=== PATIENT | female | born 1970 | race Caucasian/White ===

== ENCOUNTER 2020-10-07 16:46 | Outpatient (CLI) | payer OTHER, SELFPAY ==
--- NOTE | ~2020-10-07 | US_ITS ---
EXAMINATION: US venous doppler LE RT DATE: 10/07/2020 17:12 INDICATION: Right lower limb pain. TECHNIQUE: Grayscale ultrasound images without and with compression and Doppler ultrasound images of the right lower extremity veins were obtained. COMPARISON: None. FINDINGS: The visualized portions of right common femoral vein, profunda (deep) femoral vein, femoral vein, pop liteal vein, peroneal veins, posterior tibial veins, and greater saphenous vein outflow are patent. IMPRESSION: 1. No deep venous thrombosis. Reviewed, dictated and finalized at location A. 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
== END 2020-10-07 16:47 | disposition home or self-care (01) ==
PROVIDERS: PCP Family Medicine; Visit Provider Physician Assistant Medical
DX: M79.604 Pain in right leg (principal); M79.89 Other specified soft tissue disorders
CPT/HCPCS: 93971

== ENCOUNTER → 2022-05-03 15:49 | Outpatient (CLI) | payer OTHER, SELFPAY ==
--- NOTE | ~2022-05-03 | XR_ITS ---
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 AP and lateral views of right hip. COMPARISON: None FINDINGS: No pelvic fracture or bone destruction. Normal alignment at the pubic symphysis and sacroil iac joints. No fracture or dislocation, avascular necrosis or bone destruction of the right hip. Hip joint spaces appear symmetric and relatively preserved. Prominent amount fecal material in the rectum and colon. IMPRESSION: No significant abnormality of the pelvis or right hip Reviewed, dictated and finalized at location B.
== END ==
PROVIDERS: PCP Family Medicine; Visit Provider Family Medicine
DX: R10.9 Unspecified abdominal pain (principal)
CPT/HCPCS: 73502

== ENCOUNTER → 2022-08-29 13:36 | Outpatient (CLI) | payer OTHER, SELFPAY ==
--- NOTE | ~2022-08-29 | US_ITS ---
Duplex Sonography of the left extremity: Indication: Pain Findings: Sagittal and transverse B-mode images as well as color-flow imaging were performed on the l eft femoral and popliteal veins. B-mode examination was done without and with compression in the tra nsverse plane. There is good visualization of the common femoral, proximal profunda femoral, superfi cial femoral, greater saphenous, and popliteal veins. Normal flow was seen on color-flow imaging. No rmal compressibility was demonstrated. Posterior tibial and peroneal veins in the left lower extremit y also patent. Impression: No evidence of deep vein thrombosis involving the left lower extremity. Reviewed, dictated and finalized at location M. 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
== END ==
PROVIDERS: PCP Nurse Practitioner; Visit Provider Nurse Practitioner
DX: M79.89 Other specified soft tissue disorders (principal); M79.669 Pain in unspecified lower leg
CPT/HCPCS: 93971

== ENCOUNTER 2024-12-31 16:34 | Outpatient (CLI) | payer OTHER, SELFPAY ==
--- NOTE | ~2024-12-31 | XR_ITS ---
Right foot Technique: AP, oblique, and lateral views were obtained. Clinical History: Pain Findings: There is acute intra-articular, displaced fracture at the medial aspect of the base of the third proximal phalanx.. Joint spaces are preserved without erosive or degenerative change. Plantar c alcaneal spur present. Soft tissues are unremarkable. Impression: Acute intra-articular, displaced fracture at the medial aspect of the base of the third proximal phal anx. Plantar calcaneal spur. Reviewed, dictated and finalized at location M. Impression: Acute intra-articular, displaced fracture at the medial aspect of the base of t he third proximal phalanx. Plantar calcaneal spur.
--- NOTE | ~2024-12-31 | XR_ITS ---
XR ankle RT min 3V Ordering provider: Yvrose Atkins, [employer] History: . Right ankle and foot pain . Comparison: None. FINDINGS: BONES: No acute fracture or dislocation. JOINT SPACES: Normal. SOFT TISSUES: Normal. Calcaneus spur. Fixation of the insertion of the tendo Achilles. Os calcis is noted. IMPRESSION: No acute osseous abnormality of the right ankle. Reviewed, dictated and finalized at location A.
--- OUTSIDE RECORDS SUMMARY | 2024-12-31 16:57 | XMS_ITS | Patient Health Record ---
Author Organization [facility] Address [address] [place] [address] Support Name Relationship Address Phone Lisa Skinner Guarantor Unknown Reason For Referral No Information Medications Medication SIG (Take, Route, Frequency, Duration) Notes Start Date End Date Status Cymbalta 60 MG take 1 capsule (60 m g) by oral route once daily Oral 1 Active ZyrTEC Allergy 10 MG take 1 capsule by o ral route daily Oral 1 for 30 Active Accu-Chek Carmen Plus use as directed for 90 days In Vitro for 90 Active Multi-Vitamin take 1 tablet by ora l route once daily with food for 90 days Oral 1 for 90 Active Singulair 10 MG take 1 tablet (10 mg ) by oral route once daily in the evening Oral 1 for 90 Active traZODone HCl 50 MG QD Oral Active Calcium Carbonate 1250 (500 Ca) MG take 1 tablet by oral route daily for 90 days Oral 1 for 90 Active Biotin 10 mg take 1 tablet by ora l route daily for 90 days Oral 1 for 90 Active B-12 100 mcg pt does not know mg Oral for 30 Active Flonase Sensimist 27.5 MCG/SPRAY USE NEEDED Nasal for 90 A ctive Immunizations Vaccine Route Administration Date Status Comme nts Infuenza, trivalent, recombinant, preservative free Unknown 05/27/2009 Administered migrated LegPa tid= [id number] Date=05/27/2009 Vac= Influenza Problems Problem Type SNOMED Code ICD Code Onset Dates Problem Status W/U Status Risk Notes Problem Infectious mononucleosis (962122961) Infectious mononucleosis (075) 01/16/20 05 Active confirmed Problem Anemia (250153277) Anemia, unspecified (D64.9) 06/08/20 10 Active confirmed Problem Hypothyroidism (08019839) Hypothyroidism, unspecified (E03.9) 01/20/20 05 Active confirmed Problem Autoimmune thyroiditis (78341247) Autoimmune thyroiditis (E06.3) 01/16/20 05 Active confirmed Problem Thyroiditis (54343818) Thyroiditis, unspecified (E06.9) Active confirmed Problem Obesity (350777338) Obesity, unspecified (E66.9) 07/03/20 05 Active confirmed Problem Major depression, single episode (89828485) Major depressive disorder, single episode, unspecified (F32.9) Active confirmed Problem Chronic pharyngitis (654562) Chronic pharyngitis (J31.2) 01/16/20 05 Active confirmed Problem Uncomplicated asthma (disorder) (161719811) Unspecified asthma, uncomplicated (J45.909) 01/16/20 05 Active confirmed Problem Acanthosis nigricans (977107122) Acanthosis nigricans (L83) Active confirmed Problem Oligomenorrhea (87962892) Oligomenorrhea, unspecified (N91.5) 01/16/20 05 Active confirmed Problem Type II diabetes mellitus without complication (722626171) Type 2 diabetes mellitus without complications (E11.9) 02/11/20 07 Active confirmed Problem Hyperlipidemia (09150858) Hyperlipidemia, unspecified (E78.5) 01/16/20 05 Active confirmed Problem Essential hypertension (51373865) Essential (primary) hypertension (I10) 01/16/20 05 Active confirmed Plan Of Treatment No Information Insurance Providers Payer Name Payer Address Payer Phone Subscriber Number Group Number Insured Name Patient Relationship to Insured Coverage Start Date Coverage End Date [facility] Choice Plus [address] [address] [place] [address] [id number] Lisa Skinner Self - patient is the insured 4 DO NOT USE [id number] Lisa Skinner Self - patient is the insured 1
--- OUTSIDE RECORDS SUMMARY | 2024-12-31 16:57 | XMS_ITS | Encounter Summary ---
Author Organization [facility] Address 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
--- OUTSIDE RECORDS SUMMARY | 2024-12-31 16:57 | XMS_ITS | Clinical Summary ---
Author Organization [facility] Address [address] [place] [address] Care Team Providers Care Education Intern Name Role Phone Breanna Cosby MD Primary Care Provider [phone] Source Comments [facility],non-owned Affiliates and Associated Physician Practices is amultiple site organization consisting of ambulatory clinics and hospital sitesin [place], [place] and [place]. This disclosure is being madepursuant to the Care Everywhere program and may not contain all information available regarding this patient. Last updated 18.[facility] Allergies Active Allergy Reactions Criticality Noted Date Comments Penicillins 01/24/2010 Hives Sulfa Drugs Urticaria Medium 03/01/2017 Medications * Be aware that medications may not be up to date on this document. Alwaysverify current medications with the patient. fluticasone propionate (FLONASE) 50 MCG/ACT nasal spray [place] 2 (two) sprays into each nostril once daily Active levothyroxine (SYNTHROID) 150 MCG tablet Take 1 (one) tablet by mouth daily before breakfast Take am of OR Active vitamin B-12 (CYANOCOBALAMIN ) 100 MCG tablet Take 1 Tab by mouth daily. 30 1 0 Active DULoxetine (CYMBALTA) 60 MG capsule Take 40 mg by mouth 2 times daily Active traZODone (DESYREL) 50 MG tablet Take 2 (two) tablets by mouth at bedtime Active Rosuvastatin Calcium (CRESTOR PO) Active Cetirizine HCl (ZYRTEC ALLERGY PO) Active Ferrous Sulfate (IRON) 325 (65 FE) MG Active vitamin D3 (CHOLECALCIFERO L) 25 MCG (1000 UNITS) tablet Take by mouth once daily Active Ozempic, 2 MG/DOSE, 8 MG/3ML pen 3 Active Tresiba FlexTouch 100 UNIT/ML pen 3 Active Insulin Lispro-aabc (Bonnie Louis) 200 UNIT/ML SOPN 18 units TID and 5 units with snack + SSI --> max dose 80 units/day 4 Active Active Problems Problem Noted Date Diagnosed Date Potassium depletion 03/28/2010 Rectal bleeding 03/05/2010 Status following gastric bypass for weight loss 02/27/2010 Morbid obesity 01/24/2010 Female stress incontinence 01/24/2010 Hypothyroidism 01/24/2010 Sleep apnea 01/24/2010 Dyspnea on exertion 01/24/2010 Diabetes mellitus type II, c ontrolled, with no complications 01/24/2010 High blood cholesterol 01/24/2010 Seasonal allergies 01/24/2010 Pain in joint, multiple sites 01/24/2010 Social History Tobacco Use Types Packs/Day Years Used Date Smoking Tobacco: Never Smokeless Tobacco: Never Alcohol Use Standard Drinks/Week Comments Yes 0 (1 standard drink = 0.6 oz pur e alcohol) rare Comments No Sex and Gender Information Value Date Recorded Sex Assigned at Not on file 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 Gender Identity Not on file Sexual Orientation Not on file Last Filed Vital Signs Vital Sign Reading Time Taken Comments Blood Pressure 116/76 06/22/2024 9:13 AM CDT Pulse 81 06/22/2024 9:13 AM CDT Temperature 36.4 C (97.6 F) 06/22/2024 9:13 AM CDT Respiratory Rate 20 02/28/2022 1:26 PM CDT Oxygen Saturation 98% 06/22/2024 9:13 AM CDT Inhaled Oxygen Concentration - - Weight 93.8 kg (206 lb 12.8 oz) 06/22/2024 9:13 AM CDT Height 167.6 cm (5' 6 ) 06/22/2024 9:13 AM CDT Body Mass Index 33.38 06/22/2024 9:13 AM CDT Plan of Treatment Upcoming Encounters Date Type Department Care Team (Late st Contact Info) Description 06/24/2025 10:00 AM CDT Office Visit [facility] [address] [place], [place] [id number] Rachael Taylor Rosa Isela, BUSINESS INSIGHT AND ANALYTICS MANAGER-SKIING TEACHER [address] [facility] [address] [place], [place] [id number] Health Maintenance Due Date Last Done Comments COLOGUARD (AGES 45-75) - COLON CA SCREENING 1971 COLON MONITORING 1971 COLONOSCOPY - COLON CA SCREENING 1971 CT COLONOGRAPHY - COLON CA SCREENING 1971 Colorectal Cancer Screening 1971 FIT - COLON CA SCREENING 1971 FLEX SIG - COLON CA SCREENING 1971 PAP SMEAR 1971 HIV SCREENING 1986 HEPATITIS C SCREENING 05/28/1989 DTAP/TDAP/TD VACCINES (1 - Tdap) 1990 HEPATITIS B VACCINE (1 of 3 - 19+ 3-dose series) 1990 PNEUMOCOCCAL VACCINE 50+ (1 of 2 - PCV) 1990 DIABETES RETINOPATHY SCREENING 04/01/2019 DIABETES-FOOT EXAM WITH MONOFILAMENT 04/01/2019 ZOSTER VACCINE (1 of 2) 2021 COVID-19 VACCINE ( season) 2024 01/31/2022, 07/01/2021, 10/31/2020, Additional history exists DIABETES-SERUM CREATININE 07/06/20242022, 04/03/2022, 04/05/2021, Additional history exists DIABETES-HGB A1C 08/18/2024 02/17/2024, 12/2020, 03/21/2020, Additional history exists DEPRESSION SCREENING 09/02/2024 DIABETES - URINE PROTEIN SCREENING 09/02/2024 INFLUENZA VACCINE (Season Ended) 2025 06/26/2020, 07/24/2019, 07/30/2018 MAMMOGRAM 05/30/2025 05/30/2023, 05/04, 05/25/2022, Additional history exists HIB VACCINE Aged Out No longer eligi ble based on patient's age to complete this topic HPV VACCINE Aged Out No longer eligi ble based on patient's age to complete this topic MENINGOCOCCAL (Group B) VACCINE SHARED DECISION-MAKING Aged Out No longer eligible based on patient's age to complete this topic MENINGOCOCCAL GROUPS A/C/Y/W VACCINE Aged Out No longer eligible based on patient's age to complete this topic Procedures Procedure Name Priority Date/Time Associated Diagnosis Comments COMPREHENSIVE METABOLIC PANEL Routine 07/06/2023 7:07 AM CDT Morbid obesity Vitamin deficiency Bariatric surgery status Vitamin D deficiency Postsurgical malabsorption HEMOGLOBIN A1C Routine 04/05/2021 3:03 PM CDT Morbid obesity Bariatric surgery status Vitamin deficiency Vitamin D deficiency Postsurgical malabsorption from Last 3 Months or Most Recently Relevant to Health Maintenance Results * (ABNORMAL) COMPREHENSIVE METABOLIC PANEL (07/06/2023 7:07 AM CDT) Glucose 145(H) 65 - 99 mg/dL [facility] Comment: Fasting reference interval For someone without known diabetes, a glucose value >125 mg/dL indicates that they may have diabetes and this should be confirmed with a follow-up test. BUN 8 7 - 25 mg/dL [facility] Creatinine 0.60 0.50 - 1.03 mg/dL [facility] eGFR by Cystatin C 108 > OR = 60 mL/min/1. 73m2 [facility] BUN/Creatinine Ratio SEE NOTE: 6 - 22 (calc) [facility] Comment: Not Reported: BUN and Creatinine are within reference range. Sodium 138 135 - 146 mmol/L [facility] Potassium 4.2 3.5 - 5.3 mmol/L [facility] Chloride 102 98 - 110 mmol/L [facility] CO2 28 20 - 32 mmol/L [facility] Calcium 9.6 8.6 - 10.4 mg/dL [facility] Protein Total 6.9 6.1 - 8.1 g/dL [facility] Albumin 4.3 3.6 - 5.1 g/dL [facility] Globulin Total 2.6 1.9 - 3.7 g/dL (calc) [facility] Albumin/Globulin Ratio 1.7 1.0 - 2.5 (calc) [facility] Bilirubin Total 0.4 0.2 - 1.2 mg/dL [facility] Alkaline Phosphatase 93 37 - 153 U/L [facility] AST 20 10 - 35 U/L [facility] ALT 23 6 - 29 U/L [facility] Comment: Test Performed at: [facility] [id number] [place] [id number] EVERTON LOMAS MD Blood BLOOD SPECIMEN / Unknown 07/06/2023 7:07 AM CDT 07/06/2023 7:08 AM CDT us Rachael Taylor BUSINESS INSIGHT AND ANALYTICS MANAGER-SKIING TEACHER LAB - CHEMISTRY ORDE RABLES Final Result [facility] [address] [place] [address] * (ABNORMAL) HEMOGLOBIN A1C (HgbA1C) (04/05/2021 3:03 PM CDT) Hemoglobin A1c 11.4(H) 4.8 - 5.6 % [facility] INSURANCE BILL Comment: . Prediabetes: 5.7 - 6.4 Diabetes: >6.4 Glycemic control for adults with diabetes: <7.0 Blood BLOOD SPECIMEN / Unknown 04/05/2021 3:03 PM CDT 04/05/2021 Narrative Resulting Agency Comment Lab Testing performed at: [facility] [phone] [place] Rachael Taylor APRN-SKIING TEACHER LAB - CHEMISTRY ORDE FELIPE Final Result [facility] [address] [place] [address] from Last 3 Months or Most Recently Relevant to Health Maintenance Insurance [facility] Advance Directives * Full Code (Latest Code Status on File) Date Activated Date Inactivated Comments 03/05/2010 11:35 AM 03/08/2010 8:08 AM * Full Code Date Activated Date Inactivated Comments 02/27/2010 4:34 PM 03/04/2010 2:42 AM Care Teams Education Intern Relationship Specialty Start Date End Date Breanna Cosby MD [address] [place] [address] PCP - General Family Medicine 02/29/16
--- OUTSIDE RECORDS SUMMARY | 2024-12-31 16:57 | XMS_ITS | Referral Summary ---
Author Organization [facility] Address [address] [place] [address] Care Team Providers Care Accounting Teacher Name Role Phone Breanna Cosby MD Primary Care Provider + Encounters Date Type Department Care Team Description 10/14/2024 Orders Only [facility] Endocrinology Metabolism and Lipid [address] [facility] 2nd [address] [place] [address] Zehra Pa DO 10/09/2024 10:45 AM HYDROLOGICAL TECHNICAL OFFICER Office Visit [facility] Endocrinology Metabolism and Lipid [address] [facility] [address] [facility] 2[address] [place] [address] Zehra Pa DO Type 2 diabetes mellitus with hyperglycemia, with long-term current use of insulin (HCC) (Primary Dx); Hypothyroidism, unspecified type; Hyperlipidemia, unspecified hyperlipidemia type; Other hyperlipidemia; Bariatric surgery status; Neuropathy from Last 3 Months Allergies Active Allergy Reactions Criticality Noted Date Comments Cephalosporins Hives,Itching Medium Metformin Diarrhea Low 01/15/2005 Penicillins Hives Medium Reaction: Hives, , Pravastatin Other (See comments) Low 01/15/2005 Sulfa (Sulfonamide Antibiotics) Hives Medium Medications multivitamin-mi t-tepx-QW-vit K (MULTI FOR HER) 18 mg iron-600 mcg-40 mcg capsule 0 0 3 Active ferrous sulfate (IRON) 325 mg (65 mg of elemental iron) tablet 0 0 3 Active cyanocobalamin (VITAMIN B-12) 1,000 mcg sublingual tablet 1,000 mcg. 0 0 3 Active levothyroxine sodium (TIROSINT) 125 mcg capsule take 1 capsule by oral route every day 0 0 4 Active cetirizine (ZyrTEC) 10 mg capsule 10 mg. 0 0 4 Active cholecalciferol (VITAMIN D-3) 25 mcg (1,000 unit) tablet Take by mouth daily Active calcium citrate 250 mg calcium tablet tablet Active econazole 1 % cream Apply topically daily 15 g 1 2 Active glucagon (Gvoke HypoPen 2-Pack) 1 mg/0.2 mL auto-injector Inject 1 mg under the skin as needed (hypoglycemia) 0.2 mL 1 2 Active DULoxetine 40 mg capsule,delayed release(DR/EC) 40 mg 2 (two) times a day 3 Active rosuvastatin (CRESTOR) 10 mg tablet 3 Active traZODone (DESYREL) 100 mg tablet 3 Active fluticasone (Flonase Sensimist) 27.5 mcg/actuation nasal spray Administer 2 sprays into each nostril daily Active insulin lispro-aabc (LYUMJEV) 200 unit/mL pen for injection 18 units TID and 5 units with snack + SSI --> max dose 80 units/day 36 mL 3 4 Active pen needle, diabetic (BD Ultra-Fine Anahy Pen Needle) 32 gauge x 5/32 needle USE TO INJECT INSULIN 4 TO 5 TIMES PER DAY 450 each 1 4 Active insulin degludec (TRESIBA) 100 unit/mL (3 mL) pen for injection INJECT 16 UNITS UNDER THE SKIN DAILY 15 mL 1 4 Active FreeStyle Jv 2 Sensor kit CHANGE SENSOR EVERY 2 WEEKS DIRECTED 5 Active blood-glucose sensor (FreeStyle Jv 3 Plus Sensor) deviceIndicatio ns:Type 2 diabetes mellitus with hyperglycemia, with long-term current use of insulin (HCC) Use as directed to continually check blood glucose; change every 15 days 6 each 1 5 Active semaglutide (OZEMPIC) 2 mg/dose (8 mg/3 mL) pen injector injection Inject 2 mg under the skin every 7 days 3 mL 6 5 Active pregabalin (LYRICA) 75 mg capsule Take 1 capsule (75 mg total) by mouth 2 (two) times a day 180 capsule 3 5 Active Active Problems Problem Noted Date Diagnosed Date Screening for colon cancer 08/13/2024 Amenorrhea 04/25/2021 Oligomenorrhea 11/04/2017 Adiposity 03/29/2014 Overview (12/07/2016): Obesity 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/07/2016): 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 Migraine headache 05/15/2013 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 Open injury posterior tibial nerve 10/09/2012 Diabetes mellitus 10/09/2012 Potassium depletion 03/28/2010 Rectal bleeding 03/05/2010 Status following gastric bypass for weight loss 02/27/2010 Diabetes mellitus type II, c ontrolled, with no complications ([facility] 01/24/2010 Overview (04/04/2021): Type 2 diabetes mellitus Hypothyroidism 01/24/2010 Overview (04/04/2021): Hypothyroidism Morbid obesity ([facility]) 01/24/2010 Dyspnea on exertion 01/24/2010 Female stress incontinence 01/24/2010 Hyperlipidemia 01/24/2010 Pain in joint, multiple sites 01/24/2010 Seasonal allergies 01/24/2010 Sleep apnea 01/24/2010 Immunizations Immunization Administration Dates Next Due Influenza, Quadrivalent, Spl it, Intramuscular 07/24/2019 Influenza, Quadrivalent, Spl it, Preservative Free, Intramuscular 06/26/2020,07/30/2018 Pfizer SARS-CoV-2 Monovalent Vaccination (12+ Yrs) PURPLE 01/31/2022,07/01/2021,10/31/2020,10/03 Social History Tobacco Use Types Packs/Day Years Used Date Smoking Tobacco: Never Passive Smoke Exposure: Never Smokeless Tobacco: Never Tobacco Cessation:Counseling Given: Not Answered Alcohol Use Standard Drinks/Week Comments Yes 0 (1 standard drink = 0.6 oz pur e alcohol) Rarely AUDIT-C Answer Date Recorded Q1: How often do you have a drink containing alc ohol? Monthly or less 07/16/2022 Q2: How many drinks containi ng alcohol do you have on a typical day when you are drinking? 1 or 2 07/16/2022 Frequency of Binge Drinking Not on file 07/03 Comments No Sex and Gender Information Value Date Recorded Sex Assigned at Not on file Legal Sex Female 2:03 PM HYDROLOGICAL TECHNICAL OFFICER Gender Identity Not on file Sexual Orientation Not on file Last Filed Vital Signs Vital Sign Reading Time Taken Comments Blood Pressure 105/77 10/09/2024 10:37 AM HYDROLOGICAL TECHNICAL OFFICER Pulse 80 10/09/2024 10:37 AM HYDROLOGICAL TECHNICAL OFFICER Temperature 36.2 C (97.1 F) 10/09/2024 10:37 AM HYDROLOGICAL TECHNICAL OFFICER Respiratory Rate 18 07/21/2022 3:44 PM HYDROLOGICAL TECHNICAL OFFICER Oxygen Saturation 98% 09/17/2023 10:04 AM HYDROLOGICAL TECHNICAL OFFICER Inhaled Oxygen Concentration - - Weight 91.2 kg (201 lb) 10/09/2024 10:37 AM HYDROLOGICAL TECHNICAL OFFICER Height 167.6 cm (5' 6 ) 10/09/2024 10:37 AM HYDROLOGICAL TECHNICAL OFFICER Body Mass Index 32.44 10/09/2024 10:37 AM HYDROLOGICAL TECHNICAL OFFICER Plan of Treatment Scheduled Procedures Name Priority Associated Diagnoses Date/Ti me COLONOSCOPY Open Access Screening for colon cancer Procedures Procedure Name Priority Date/Time Associated Diagnosis Comments POCT HEMOGLOBIN A1C Routine 10/09/2024 10:53 AM HYDROLOGICAL TECHNICAL OFFICER Type 2 diabetes mellitus with hyperglycemia, with long-term current use of insulin (HCC) HIGH RISK HPV DNA DETECTION WITH GENOTYPING Routine 08/13/2024 11:00 AM HYDROLOGICAL TECHNICAL OFFICER Well woman exam with routine gynecological exam SCREENING MAMMOGRAM BILATERAL W DENILSON W IMPLANTS Schedule Routine, Read Routine (OP Routine) 08/13/2024 10:59 AM HYDROLOGICAL TECHNICAL OFFICER Screening mammogram, encounter for COMPREHENSIVE METABOLIC PANEL Routine 06/15/2024 8:20 AM CDT Other hyperlipidemia LIPID PANEL Routine 06/15/2024 8:20 AM CDT Other hyperlipidemia ALBUMIN CREATININE RATIO, URINE Routine 11/25/2023 6:39 AM CDT Controlled type 2 diabetes mellitus without complication, with long-term current use of insulin (HCC) SERUM HEPATITIS C AB Routine 12/02/2013 3:00 AM CDT from Last 3 Months or Most Recently Relevant to Health Maintenance Results * POCT hemoglobin A1c (10/09/2024 10:53 AM HYDROLOGICAL TECHNICAL OFFICER) Pathologist [facility] Hemoglobin A1C, POC 8.0 4.0 - 5.6 % Blood 10/09/2024 10:5 3 AM HYDROLOGICAL TECHNICAL OFFICER Zehra Pa DO POINT OF CARE TEST JOANNE WANG Final Result * High Risk HPV DNA Detection with Genotyping (Molecular component) (08/13/2024 11:00 AM HYDROLOGICAL TECHNICAL OFFICER) Pathologist [facility] HPV HR 16 Not Detected Not Detected HPV HR 18 Not Detected Not Detected [facility] HPV HR Non 16/18 Not Detected Not Detected [facility] Comment: Interpretive Data Nucleic acid amplification for detection of high-risk Human Papilloma virus (HPV) is performed by the Esther Javed 4800 HPV test, which specifically detects high-risk HPV-16, 18, 31, 33, 35, 39, 45, 51, 52, 56, 58, 59, 66, and 68 genotypes. This assay has been approved by the [place] Food and Drug Administration for detection of HPV in cervical specimens collected by a physician using an endocervical brush/spatula or cervical broom and placed in the ThinPrep Pap Test PreservCyt collection containers. The performance characteristics of this test have been verified by the [facility]. Correlate with separately reported cytology results, as applicable. Interpretive data last revised 23 Endocervical 08/13/2024 11:0 0 AM HYDROLOGICAL TECHNICAL OFFICER 08/14/2024 10:31 AM HYDROLOGICAL TECHNICAL OFFICER Narrative [facility] - 08/15/2024 7:01 PM HYDROLOGICAL TECHNICAL OFFICER Clinical history and diagnosis->z01.419 Number of vials->1 Testing type->Screening Last menstrual period (date if known)->pm Menstrual status->Postmenopausal Jessica Topete MD PhD LAB BODY FLUIDS AND ST OOLS ORDERABLES Final Result [facility] [address] Department [place] [address] * Screening Mammogram Bilateral W Denilson W Implants (08/13/2024 10:59 AM HYDROLOGICAL TECHNICAL OFFICER) Anatomical Region Laterality Modality Breast Bilateral Mammography Narrative 08/13/2024 1:34 PM HYDROLOGICAL TECHNICAL OFFICER Examination: Screening Mammogram Bilateral W Denilson W Implants: 08/13/24 Clinical: Screening mammogram, encounter for. Prior Study Comparisons: Comparison was made to the prior available relevant studies at the time of interpretation. Findings: Screening Mammogram Bilateral W Denilson W Implants Bilateral No significant masses, malignant type calcifications, skin thickening, nipple retraction, or significant lymphadenopathy is noted in either breast. Computer Aided Detection was utilized for the interpretation of this study. The breasts are almost entirely fatty. The patient will be notified of results by letter. Impression: BI-RADS ATLAS category (overall): 2 - Benign There is no mammographic evidence of malignancy. Routine Screening Mammogram in 1 Yr is recommended for bilateral Overall Assessment: 2 - Benign Self Screening Mammogram IMG MAMMO PROCEDURES Fi nal Result * Lipid panel (06/15/2024 8:20 AM CDT) Cholesterol 152 <200 mg/dL [facility] HDL 71 > OR = 50 mg/dL [facility] Triglycerides 69 <150 mg/dL [facility] LDL 66 mg/dL (calc) [facility] Comment: Reference range: <100 Desirable range <100 mg/dL for primary prevention; <70 mg/dL for patients with CHD or diabetic patients with > or = 2 CHD risk factors. LDL-C is now calculated using the Francis calculation, which is a validated novel method providing better accuracy than the Friedewald equation in the estimation of LDL-C. Dave JEREZ et al. EDER. 2013;310(19): 1927-6748 (http://education.Placeling/faq/MDI644) Chol/HDL ratio 2.1 <5.0 (calc) [facility] Non-HDL, (LDL+VLDL) 81 <130 mg/dL (calc) [facility] Comment: For patients with diabetes plus 1 major ASCVD risk factor, treating to a non-HDL-C goal of <100 mg/dL (LDL-C of <70 mg/dL) is considered a therapeutic option. Blood 06/15/2024 8:20 AM CDT 06/15/2024 8:21 AM CDT Narrative [facility] - 06/16/2024 4:12 PM CDT FASTING:YES FASTING: YES us Zehra Pa DO LAB BLOOD ORDERABLES Fi nal Result [facility] [address] [place] [address] * (ABNORMAL) Comprehensive metabolic panel (06/15/2024 8:20 AM CDT) Pathologist [facility] Glucose 164(H) 65 - 99 mg/dL [facility] Comment: Fasting reference interval For someone without known diabetes, a glucose value >125 mg/dL indicates that they may have diabetes and this should be confirmed with a follow-up test. BUN 8 7 - 25 mg/dL [facility] Creatinine 0.64 0.50 - 1.03 mg/dL [facility] eGFR 106 > OR = 60 mL/min/1.7 3m2 [facility] BUN/creat ratio SEE NOTE: 6 - 22 (calc) [facility] Comment: Not Reported: BUN and Creatinine are within reference range. Sodium 140 135 - 146 mmol/L [facility] Potassium, pl 3.9 3.5 - 5.3 mmol/L [facility] Chloride 102 98 - 110 mmol/L [facility] CO2 27 20 - 32 mmol/L [facility] Calcium 9.5 8.6 - 10.4 mg/dL [facility] Protein, sr 6.5 6.1 - 8.1 g/dL [facility] Albumin 4.2 3.6 - 5.1 g/dL [facility] GLOBULIN 2.3 1.9 - 3.7 g/dL (calc) [facility] Alb/glob ratio 1.8 1.0 - 2.5 (calc) [facility] Bilirubin, total 0.5 0.2 - 1.2 mg/dL [facility] Alk phos 81 37 - 153 U/L [facility] AST 27 10 - 35 U/L [facility] ALT (SGPT) 27 6 - 29 U/L [facility] Blood 06/15/2024 8:20 AM CDT 06/15/2024 8:21 AM CDT Narrative [facility] - 06/16/2024 4:12 PM CDT FASTING:YES FASTING: YES us Zehra Pa DO LAB BLOOD ORDERABLES Fi nal Result [facility] [address] [facility] [place] [address] * Albumin Creatinine Ratio, Urine (11/25/2023 6:39 AM CDT) Creatinine, ur 60 20 - 275 mg/dL [facility] Microalbumin, ur 0.2 See Note: mg/dL [facility] Comment: Reference Range: Reference Range Not established Microalbumin/creat ratio 3 <30 mg/g creat [facility] Comment: The ADA defines abnormalities in albumin excretion as follows: Albuminuria Category Result (mg/g creatinine) Normal to Mildly increased <30 Moderately increased 30-299 Severely increased > OR = 300 The ADA recommends that at least two of three specimens collected within a 3-6 month period be abnormal before considering a patient to be within a diagnostic category. Urine 11/25/2023 6:39 AM CDT 11/25/2023 6:39 AM CDT us Zehra Pa DO LAB URINE ORDERABLES Fi nal Result [facility] [address] [address] * Serum Hepatitis C ab (12/02/2013 3:00 AM CDT) HCV ab Negative NEG HISTORICAL RESULTS Serum 12/02/2013 3:00 AM CDT Narrative HISTORICAL RESULTS - 12/03/2013 6:44 AM CDT {Testing performed by: [place] [address]} Interpretive Data If confirmation is required, call Laboratory Customer Service to request sample to be sent to [facility] for Hepatitis C Virus (HCV) RNA Detection and Quantitation by Real-Time Reverse Patient Placement Coordinator-PCR (RT-PCR). Current interpretive data was last revised on 2011 us Abby Bone MD LAB BLOOD ORDERABLES Fin al Result HISTORICAL RESULTS from Last 3 Months or Most Recently Relevant to Health Maintenance Insurance [facility] H[facility]/PPO Address: [facility] [address] [place] [address] [facility] HMO/PPO Address: [address] [address] [facility] [employer] HMO/PPO Address: [address] [address] [place] [address] Care Teams Accounting Teacher Relationship Specialty Start Date End Date Breanna Cosby MD PCP - General 05/27/15
--- OUTSIDE RECORDS SUMMARY | 2024-12-31 16:57 | XMS_ITS | Clinical Summary ---
Author Organization [facility] Address [address] [place]: Epic Prelude ADT [place] [address] Care Team Providers Care Plodding Operator Name Role Phone Unavailable Primary Care Provider Unavailabl e Social History Tobacco Use Types Packs/Day Years Used Date Smoking Tobacco: Never Assessed Comments Unknown Sex and Gender Information Value Date Recorded Sex Assigned at Not on file Legal Sex Female 5:15 AM SETTER UP Gender Identity Not on file Sexual Orientation Not on file Plan of Treatment Health Maintenance Due Date Last Done Comments DTAP/TDAP/TD VACCINES (1 - Tdap) 1990 HEPATITIS B VACCINES (1 of 3 - 19+ 3-dose series) 09/1989 HPV/Cotest (21-29) 1992 CERVICAL CANCER SCREENING 2001 HPV/Cotest (30-65) 2001 PAP SMEAR 2001 BREAST CANCER SCREENING 2011 COLORECTAL SCREENING 2016 Colorectal Cancer Screening 2016 FIT-DNA Q 3 years 2016 FIT/FOBT Q 1 year 2016 Flex Sig/CT Colonography Q 5 years 2016 ZOSTER VACCINE (1 of 2) 2021 INFLUENZA VACCINE (#1) 2024
--- OUTSIDE RECORDS SUMMARY | 2024-12-31 16:57 | XMS_ITS | Clinical Summary ---
Author Organization [facility] Address [address] [place] [address] Phone Care Team Providers Care Contact Manager Name Role Phone Unavailable Primary Care Provider Unavailabl e Social History Tobacco Use Types Packs/Day Years Used Date Smoking Tobacco: Never Assessed Comments Unknown Sex and Gender Information Value Date Recorded Sex Assigned at Not on file Legal Sex Female 8:21 AM SPED TEACHER Gender Identity Not on file Sexual Orientation Not on file Plan of Treatment Health Maintenance Due Date Last Done Comments Hepatitis C Virus (HCV) Screening 1971 TdaP Immunization 1971 Hepatitis B Immunization (1 of 3 - 19+ 3-dose series) 1990 Pap Smear 1992 Cervical Cancer Screening (CCS) 2001 HPV/Cotest 2001 Colonoscopy 2016 Colorectal Cancer Screening 2016 Cologuard 2021 Immunochemical Fecal Occult Blood 2021 Mammogram 2021 Pneumococcal Immunization (5 0+ years) (1 of 1 - PCV) 2021 Zoster Immunization (1 of 2) 2021 Influenza Immunization (#1) 05/03/202407/04, 07/30/2018 SARS-COV-2 Immunization ( - 2023- season) 2024 Respiratory Syncytial Virus (RSV) Immunization (Adult) (1 - 1-dose 75+ series) 2046 Meningococcal Immunization (ACWY) Aged Out No longer eligible b ased on patient's age to complete this topic Pneumococcal Immunization Combined Aged Out No longer eligible b ased on patient's age to complete this topic Rotavirus Immunization Aged Out No lo nger eligible based on patient's age to complete this topic
--- OUTSIDE RECORDS SUMMARY | 2024-12-31 16:57 | XMS_ITS | Clinical Summary ---
Author Organization [facility] Address [address] [place] [address] Care Team Providers Care Deflash And Wash Operator Name Role Phone Breanna Cosby MD Primary Care Provider + Allergies Active Allergy Reactions Criticality Noted Date Comments Cephalosporins Hives,Itching Medium Metformin Diarrhea Low 01/15/2005 Penicillins Hives Medium Reaction: Hives, , Pravastatin Other (See comments) Low 01/15/2005 Sulfa (Sulfonamide Antibiotics) Hives Medium Medications multivitamin-mi p-izse-GN-vit K (MULTI FOR HER) 18 mg iron-600 [...] type II, c ontrolled, with no complications ([facility]) 01/24/2010 Overview (04/04/2021): Type 2 diabetes mellitus Hypothyroidism 01/24/2010 Overview (04/04/2021): Hypothyroidism Morbid obesity ([facility]) 01/24/2010 Dyspnea on exertion 01/24/2010 Female stress incontinence 01/24/2010 Hyperlipidemia 01/24/2010 Pain in joint, multiple sites 01/24/2010 Seasonal allergies 01/24/2010 Sleep apnea 01/24/2010 Encounters Date Type Department Care Team Description 10/14/2024 Orders Only [facility] Metabolism and Lipid [address] [facility] 2nd Floor [address] [place] [address] Zehra Pa DO 10/09/2024 10:45 AM FOOD SAFETY OFFICER Office Visit [facility] Metabolism and Lipid [address] [place] [address] Zehra Pa DO Type 2 diabetes mellitus with hyperglycemia, with long-term current use of insulin ([facility]) (Primary Dx); Hypothyroidism, unspecified type; Hyperlipidemia, unspecified hyperlipidemia type; Other hyperlipidemia; Bariatric surgery status; Neuropathy from Last 3 Months Immunizations Immunization Administration Dates Next Due Influenza, Quadrivalent, Spl it, Intramuscular 07/24/2019 Influenza, Quadrivalent, Spl it, Preservative Free, Intramuscular 06/26/2020,07/30/2018 Pfizer SARS-CoV-2 Monovalent Vaccination (12+ Yrs) PURPLE 01/31/2022,07/01/2021,10/31/2020,10/03 Surgical History Surgery Date Site/Laterality Comments GASTRIC BYPASS 09/02/2009 - 09/01/2010 AUGMENTATION MAMMAPLASTY saline 2010 DECOMPRESSION NERVES UNSPECIFIED / PLANTAR DIGITAL 09/02/2012 - 09/01/2013 OTHER SURGICAL HISTORY 09/02/2011 - 09/01/2012 Body Contouring OTHER SURGICAL HISTORY 09/02/2010 - 09/01/2011 Body contouring FERTILITY SURGERY 01/31/2014 - 03/01/2014 Infertility, 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: IVF Medical History Medical History Date Comments Infertility management 01/2014 Infertili ty, 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; Comments: AOB 03/29/2014 -; Outcome: failed H/O gastric bypass 2009 gastric bypas s Diabetes mellitus type II, c ontrolled, with no complications (HCC) 2000 Hypothyroid Stress incontinence Sleep apnea Depression Allergic rhinitis Family History Medical History Relation Name Comments No Known Problems Brother Cancer Father Hypertension Mother Hypothyroidism Mother No Known Problems Sister Deep vein thrombosis Neg Hx Ovarian cancer Neg Hx Uterine cancer Neg Hx Relation Name Status Comments Brother Alive Father not sure where primary Mother Alive Sister Alive Social History Tobacco Use Types Packs/Day Years [...] on file Legal Sex Female 2:03 PM FOOD SAFETY OFFICER Gender Identity Not on file Sexual Orientation Not on file Obstetrics History Para Term AB IAB SAB Ectopic Multiple Livin g Live Births 0 0 0 0 0 0 0 0 0 0 0 Last Filed Vital Signs Vital Sign Reading Time Taken Comments Blood Pressure 105/77 10/09/2024 10:37 AM FOOD SAFETY OFFICER Pulse 80 10/09/2024 10:37 AM FOOD SAFETY OFFICER Temperature 36.2 C (97.1 F) 10/09/2024 10:37 AM FOOD SAFETY OFFICER Respiratory Rate 18 07/21/2022 3:44 PM FOOD SAFETY OFFICER Oxygen Saturation 98% 09/17/2023 10:04 AM FOOD SAFETY OFFICER Inhaled Oxygen Concentration - - Weight 91.2 kg (201 lb) 10/09/2024 10:37 AM FOOD SAFETY OFFICER Height 167.6 cm (5' 6 ) 10/09/2024 10:37 AM FOOD SAFETY OFFICER Body Mass Index 32.44 10/09/2024 10:37 AM FOOD SAFETY OFFICER Plan of Treatment Scheduled Procedures Name Priority Associated Diagnoses Date/Ti me COLONOSCOPY Open Access Screening for colon cancer Health Maintenance Due Date Last Done Comments Colon Cancer Screening-Colonoscopy 1971 Depression Screening 1971 Dilated Eye Exam 1971 Foot Exam 1971 DTaP/Tdap/Td Vaccine (1 - Tdap) 1982 Hepatitis B Screening 1989 Pneumococcal vaccine <65 (2 of 2 - PCV) 09/27/2022 09/27/2021 Albumin Creatinine Ratio, Urine 11/24/2024 Hemoglobin A1C 04/08/2025 10/09/2024, 01/31, 07/06/2023, Additional history exists Lipid Panel 06/15/2025 06/15/2024, 11/25/2023 eGFR 06/15/2025 06/15/2024, 11/25/2023 Breast Cancer Screening-Mammogram 08/13/2025 08/13/2024, 05/30/2023, 05/25/2022, Additional history exists Regular Well Visit/Exam 18-64 08/13/2025, 05/30/2023, 04/11/2022, Additional history exists Cervical Cancer Screening 08/13/20272023, 08/13/2024, 04/04/2021 Hepatitis C Screening Completed 12/02/2013, 013 Zoster Vaccine Completed 01/31/2022, 10/03/2021 Covid-19 Vaccine Completed 07/04/2024, , 01/31/2022, Additional history exists Influenza Vaccine Completed 07/04/2024, , 05/03/2022, Additional history exists Procedures Procedure Name Priority Date/Time Associated Diagnosis Comments POCT HEMOGLOBIN A1C Routine 10/09/2024 10:53 AM FOOD SAFETY OFFICER Type 2 diabetes mellitus with hyperglycemia, with long-term current use of insulin (HCC) HIGH RISK HPV DNA DETECTION WITH GENOTYPING Routine 08/13/2024 11:00 AM FOOD SAFETY OFFICER Well woman exam with routine gynecological exam SCREENING MAMMOGRAM BILATERAL W DENILSON W IMPLANTS Schedule Routine, Read Routine (OP Routine) 08/13/2024 10:59 AM FOOD SAFETY OFFICER Screening mammogram, encounter for COMPREHENSIVE METABOLIC [...] * POCT hemoglobin A1c (10/09/2024 10:53 AM FOOD SAFETY OFFICER) Pathologist [facility] Hemoglobin A1C, POC 8.0 4.0 - 5.6 % Blood 10/09/2024 10:5 3 AM FOOD SAFETY OFFICER Zehra Pa DO POINT OF CARE TEST JOANNE WANG Final Result * High Risk HPV DNA Detection with Genotyping (Molecular component) (08/13/2024 11:00 AM FOOD SAFETY OFFICER) Pathologist [facility] HPV HR 16 Not Detected Not Detected HPV HR 18 Not Detected Not Detected [facility] HPV HR Non 16/18 Not Detected Not Detected [facility] Comment: Interpretive Data Nucleic acid [...] this test have been verified by the [facility]. Correlate with separately reported cytology results, as applicable. Interpretive data last revised 23 Endocervical 08/13/2024 11:0 0 AM FOOD SAFETY OFFICER 08/14/2024 10:31 AM FOOD SAFETY OFFICER Narrative [facility] - 08/15/2024 7:01 PM FOOD SAFETY OFFICER Clinical history and diagnosis->z01.419 Number of vials->1 Testing type->Screening Last menstrual period (date if known)->pm Menstrual status->Postmenopausal Jessica Topete MD PhD LAB BODY FLUIDS AND ST OOLS ORDERABLES Final Result [facility] [address] [place] [address] * Screening Mammogram Bilateral W Denilson W Implants (08/13/2024 10:59 AM FOOD SAFETY OFFICER) Anatomical Region Laterality Modality Breast Bilateral Mammography Narrative 08/13/2024 1:34 PM FOOD SAFETY OFFICER Examination: Screening Mammogram Bilateral W Denilson [...] for bilateral Overall Assessment: 2 - Benign us Self Screening Mammogram IMG MAMMO PROCEDURES Fi [...] equation in the estimation of LDL-C. Dave SS et al. EDER. 2013;310(19): 5902-2417 (http://education.[employer]/faq/OWD157) Chol/HDL ratio 2.1 <5.0 (calc) [facility] [...] LAB BLOOD ORDERABLES Fi nal Result [facility] [address] [place] [address] * (ABNORMAL) Comprehensive metabolic panel (06/15/2024 8:20 AM CDT) Glucose 164(H) 65 - 99 mg/dL [facility] [...] BLOOD ORDERABLES Fi nal Result [facility] [address] [address] * Albumin Creatinine Ratio, Urine (11/25/2023 6:39 [...] LAB URINE ORDERABLES Fi nal Result [facility] [address] [place] [address] * Serum Hepatitis C ab (12/02/2013 3:00 AM CDT) HCV ab Negative NEG HISTORICAL RESULTS Serum 12/02/2013 3:00 AM CDT Narrative HISTORICAL RESULTS - 12/03/2013 6:44 AM CDT {Testing performed by: [facility], [place] [address]} Interpretive Data If confirmation is required, call Laboratory Customer Service to request sample to be sent to [facility] for Hepatitis C Virus (HCV) RNA Detection and Quantitation by Real-Time Reverse Program Engagement Director-PCR (RT-PCR). Current interpretive data was last revised on 2011 us Abby Bone MD LAB BLOOD ORDERABLES Fin al Result HISTORICAL RESULTS from Last 3 Months or Most Recently Relevant to Health Maintenance Insurance [facility] H[facility]/PPO Address: [place] [address] [facility] Address: [place] [address] [facility] Address: [place] [address] Care Teams Deflash And Wash Operator Relationship Specialty Start Date End Date Breanna Cosby MD PCP - General 05/27/15
== END 2024-12-31 16:35 | disposition home or self-care (01) ==
PROVIDERS: PCP Family Medicine; Visit Provider Nurse Practitioner Family
DX: S92.511A Displaced fracture of proximal phalanx of right lesser toe(s), initial encounter for closed fracture (principal); X58.XXXA Exposure to other specified factors, initial encounter; M77.31 Calcaneal spur, right foot
CPT/HCPCS: 73610; 73630

== ENCOUNTER 2025-01-04 15:54 | Outpatient (CLI) | payer OTHER, SELFPAY ==
--- NOTE | ~2025-01-04 | XR_ITS ---
[id number] 01/04/2025 16:04 Indication: Right knee pain Procedure: 2 views right knee Comparison: No prior studies for comparison. Findings: No fracture, subluxation or dislocation. Mild tricompartment osteoarthritis. Normal mineral ization. No joint effusion. No foreign bodies. Impression: 1: Mild tricompartment osteoarthritis. Reviewed, dictated and finalized at location A. Impression: 1: Mild tricompartment osteoarthritis.
== END 2025-01-04 15:55 | disposition home or self-care (01) ==
LOC: GOSHIMG 15:55
PROVIDERS: PCP Family Medicine; Visit Provider Student in an Organized Health Care Education/Training Program
DX: M17.11 Unilateral primary osteoarthritis, right knee (principal)
CPT/HCPCS: 73560